=== PATIENT | male | born 1995 | race Two or more races ===

== ENCOUNTER → 2025-05-04 | Outpatient (CLI) | payer MEDICAID, SELFPAY ==
--- NOTE | 2025-05-04 14:16 | XR_ITS ---
EXAMINATION: PA lateral chest 2 views TECHNIQUE: Upright PA lateral chest 2 views Date and time: May 04, 2025, 1446 hours INDICATIONS: Shortness of breath 5 months FINDINGS: Significant hyperexpansion Normal heart size No pneumonia or pulmonary edema IMPRESSION: Significant hyperexpansion
== END | disposition home or self-care (01) ==
LOC: CDIM 14:07
PROVIDERS: Referring Provider Physician Assistant; Visit Provider Physician Assistant
DX: R91.8 Other nonspecific abnormal finding of lung field (principal); F12.90 Cannabis use, unspecified, uncomplicated
CPT/HCPCS: 71046